=== PATIENT | male | born 1950 | race American Indian/Alaskan Native ===

== ENCOUNTER 2017-07-26 13:14 | Emergency (ER) | payer SELFPAY | END 2017-07-26 13:15 | disposition left against medical advice (07) | LOC: ED 13:14 | DX: R42 Dizziness and giddiness (principal); R07.9 Chest pain, unspecified; Z53.21 Procedure and treatment not carried out due to patient leaving prior to being seen by health care provider | CPT/HCPCS: 93005; 93010 ==